=== PATIENT | female | born 1975 | race Caucasian/White ===

== ENCOUNTER 2023-07-01 09:53 | Outpatient (OUT) | payer BC, SELFPAY ==
--- NOTE | 2023-07-01 10:02 | XR_ITS ---
[address] [address] Patient Name: ARTURO BALL MRN: [id number] date: 1975 Sex: F Assigned Patient Location: [facility] Current Patient Location: [facility] Accession/Order Number: [id number] Exam Date: 07/01/2023 10:25 Report Date: 07/01/2023 11:44 At the request of: RUTHY LICONA Procedure: XR cervical spine 5V EXAM: XR cervical spine 5V HISTORY: M54.2, R20.2 COMPARISON: None. TECHNIQUE: 5 views FINDINGS: No acute fracture or subluxation. Maintained vertebral body heights and disc spaces. Unremarkable soft tissues. XR/XR cervical spine 5V IMPRESSION: Unremarkable exam. Electronically authenticated by: LAURIE MEYERS Date: 07/01/2023 11:44
== END 2023-07-01 09:54 | disposition home or self-care (01) ==
LOC: RAD 09:56
PROVIDERS: PCP Family Medicine; Visit Provider Family Medicine
DX: M54.2 Cervicalgia (principal); R20.2 Paresthesia of skin
CPT/HCPCS: 72050

== ENCOUNTER 2023-07-12 14:18 | Outpatient (OUT) | payer BC, SELFPAY ==
--- NOTE | 2023-07-12 | ECG_ITS ---
The [facility] Test Date: 2023-07-12 Pat Name: ARTURO BALL Department: Room: - Gender: Female Polysomnography Technician: : 1975 Requested By: RUTHY LICONA Order Number: [id number] Reading MD: DUSTIN MARTINEZ Measurements Intervals [place] Rate: 77 P: 72 VT: 144 QRS: 71 QRSD: 105 T: 63 QT: 389 QTc: 441 Interpretive Statements SINUS RHYTHM POSSIBLE RIGHT VENTRICULAR CONDUCTION DELAY [RSR (QR) IN V1/V2] No previous ECG available for comparison Electronically Signed On 07-14-2023 18:19:35 EDT by DUSTIN MARTINEZ
== END 2023-07-12 14:19 | disposition home or self-care (01) ==
LOC: CARD 14:19
PROVIDERS: PCP Family Medicine; Visit Provider Family Medicine
DX: R07.9 Chest pain, unspecified (principal)
CPT/HCPCS: 93005

== ENCOUNTER 2024-01-24 07:19 | Outpatient (OUT) | payer OTHER, SELFPAY ==
[2024-01-24 07:58] LABS: Bilirubin Urine NEGATIVE (NEGATIVE); Blood Urine LARGE (NEGATIVE); Clarity Urine SL CLOUDY (CLEAR); Color Urine YELLOW (YELLOW); Glucose Urine UA NEGATIVE (NEGATIVE); Ketones Urine NEGATIVE (NEGATIVE); Leukocyte Esterase Urine TRACE (NEGATIVE); Nitrite Urine NEGATIVE (NEGATIVE); Protein Urine 30 mg/dL (NEG/TRACE); Specific Gravity Urine >=1.030 (1.005-1.025)
[2024-01-24 07:59] LABS: Basophils Absolute Auto 0.1 10^3/uL (0.0-0.1); Basophils Percent Auto 0.6 % (0.2-2.0); Eosinophils Absolute Auto 0.1 10^3/uL (0.0-0.7); Eosinophils Percent Auto 1.7 % (0.9-7.0); Hematocrit 37.2 % (36.0-48.0); Hemoglobin 11.9 g/dL (12.0-16.0); Immature Granulocytes Abs Auto 0.02 10^3/uL (0.00-0.03); Immature Granulocytes Pct Auto 0.2 % (0.0-0.5); Lymphocytes Absolute Auto 1.8 10^3/uL (1.2-3.8); Lymphocytes Percent Auto 22.1 % (20.5-60.0); Mean Corpuscular Hemoglobin 30.4 pg (26.7-34.0); Mean Corpuscular Volume 95.1 fL (81.0-99.0); Monocytes Absolute Auto 0.7 10^3/uL (0.3-0.8); Monocytes Percent Auto 8.7 % (1.7-12.0); Neutrophils Absolute Auto 5.5 10^3/uL (1.4-6.5); Neutrophils Percent Auto 66.7 % (43.0-75.0); Platelet Count 201 10^3/uL (150-450); Red Blood Count 3.91 10^6/uL (4.20-5.40); Red Cell Distribution Width 12.6 % (11.0-15.0); White Blood Count 8.2 10^3/uL (4.0-11.0)
[2024-01-24 08:04] LABS: RBC Urine >100 #/HPF (0-2)
[2024-01-24 08:05] LABS: Bacteria Urine TRACE #/HPF (NONE SEEN); Cast Seen? NONE SEEN #/LPF (NONE SEEN); Crystals Seen? None Seen #/HPF (None Seen); Mucus Urine NONE SEEN (NONE SEEN); Squamous Epithelial Cell Urine RARE #/LPF (NONE/RARE)
[2024-01-24 08:24] LABS: Alanine Aminotransferase 24 U/L (14-59); Albumin Globulin Ratio 1.1; Albumin Level 3.9 g/dL (3.4-5.0); Alkaline Phosphatase 67 U/L (46-116); Aspartate Amino Transferase 14 U/L (15-37); BUN Creatinine Ratio 13.2; Bilirubin Total 0.4 mg/dL (0.2-1.0); Calcium 9.1 mg/dL (8.5-10.1); Carbon Dioxide 27.1 mmol/L (21.0-32.0); Chloride 104 mmol/L (98-107); Chol HDL Ratio 3.6; Cholesterol 196 mg/dL (<=200); Estimated GFR (African America >60 (>=60); Estimated GFR (Non-African Ame >60 (>=60); Globulin 3.4 g/dL; Glucose 92 mg/dL (74-106); HDL Cholesterol 55 mg/dL (40-60); LDL Cholesterol Calculated 133.6 mg/dL; Potassium 4.1 mmol/L (3.5-5.1); Sodium 140 mmol/L (136-145); Thyroid Stimulating Hormone 0.893 uIU/mL (0.358-3.740); Total Protein 7.3 g/dL (6.4-8.2); Triglycerides 37 mg/dL (<=150); VLDL CHOLESTEROL 7.4 mg/dL
== END 2024-01-24 07:20 | disposition home or self-care (01) ==
LOC: LAB 07:19
PROVIDERS: PCP Family Medicine; Visit Provider Family Medicine
DX: Z00.00 Encounter for general adult medical examination without abnormal findings (principal)
CPT/HCPCS: 36415; 80053; 80061; 81001; 84443; 85025

== ENCOUNTER 2024-01-26 13:48 | Emergency (ER) | payer OTHER, SELFPAY ==
[2024-01-26] VITALS (19 sets, daily range): BP systolic 123–144; BP diastolic 58–77; PULSE 60–80; TEMP 36.7; O2SAT 96–99; BMI 30.7
--- NOTE | 2024-01-26 14:24 | CT_ITS ---
The [address] [address] Patient Name: ARTURO BALL MRN: [id number] date: 1975 Sex: F Assigned Patient Location: ER Current Patient Location: ER Accession/Order Number: [id number] Exam Date: 01/26/2024 14:47 Report Date: 01/26/2024 15:25 At the request of: SHARON NICHOLSON Procedure: CT head/brain wo con EXAM: CT head/brain wo con HISTORY: Dizzy and headache COMPARISON: CT brain 06/02/2021. TECHNIQUE: Axial CT scans through the head were obtained without IV contrast administration. Dose reduction techniques were achieved by using: automated exposure control and/or adjustment of mA and /or kV according to patient size and/or use of iterative reconstruction technique. FINDINGS: There is no acute intracranial hemorrhage or abnormal extra-axial fluid collection. No mass effect or midline shift is seen. There is no evidence of large acute territorial infarction. There is no hydrocephalus. To the limit of CT, the posterior fossa appears unremarkable. There is partial empty sella. The calvaria and extra cranial soft tissues are unremarkable. The visualized orbits show no abnormality. The visualized paranasal sinuses show no air-fluid level. Mastoid air cells are clear. CT/CT head/brain wo con IMPRESSION: No acute intracranial process. Incidental note of partial empty sella. Electronically authenticated by: KASSIDY KAMARA Date: 01/26/2024 15:25
--- NOTE | 2024-01-26 14:24 | ED_ITS ---
HPI - Dizziness General Chief Complaint: Dizziness Stated Complaint: DIZZINESS/EXTREMITY WEAKNESS Time Seen by Provider: 01/26/24 14:16 Source: patient Mode of arrival: walk-in History of Present Illness HPI Narrative: 48-year-old female presents for headache and dizziness. This came on when she was at home at noon, about 2-1/2 hours ago. She has a frontal headache. She felt like her heart was racing and she has been under a lot of stress recently. No fever or cough or chest pain. She does not have palpitations now. Related Data Allergies Allergy/AdvReac Type Severity Reaction Status Date / Time No Known Drug Allergies Allergy Verified 01/26/24 14:04 Review of Systems ROS Narrative A ten point review of systems is negative except as noted above. Exam Narrative Exam Narrative: Nurses note and vital signs reviewed and patient is not hypoxic. General: The patient appears well and in no apparent distress. Patient is resting comfortably on cart. Skin: Warm, dry, no pallor noted. There is no rash noted. Head: Normocephalic, atraumatic Eye: Normal conjunctiva, no drainage Ears, Nose, Mouth, and Throat: oral mucosa is moist. Nares patent. Cardiovascular: Regular Rate and Rhythm Respiratory: Patient is in no distress, no accessory muscle use, lungs are clear to auscultation, no wheezing, rales or rhonchi Back: non-tender GI: Soft and nontender Musculoskeletal: The patient has no evidence of calf tenderness, no pitting edema, symmetrical pulses noted bilaterally Neurological: A&O x4, normal speech, upper and lower extremity strength 5 out of 5 and some Psychiatric: Cooperative Constitutional Vital Signs, click to edit/add: Last Vital Signs Temp 98.1 F 01/26/24 13:59 Pulse 65 01/26/24 16:01 Resp 18 01/26/24 16:01 BP 128/66 01/26/24 16:01 Pulse Ox 97 01/26/24 16:01 O2 Del Method Room Air 01/26/24 13:59 Course Vital Signs Vital signs: Vital Signs Temperature 98.1 F 01/26/24 13:59 Pulse Rate 80 01/26/24 13:59 Respiratory Rate 18 01/26/24 13:59 Blood Pressure 144/77 H 01/26/24 13:59 Pulse Oximetry 98 04/21/24 13:59 Oxygen Delivery Method Room Air 01/26/24 13:59 Temperature 98.1 F 01/26/24 13:59 Pulse Rate 65 01/26/24 16:01 Respiratory Rate 18 01/26/24 16:01 Blood Pressure 128/66 01/26/24 16:01 Pulse Oximetry 97 01/26/24 16:01 Oxygen Delivery Method Room Air 01/26/24 13:59 MDM - Dizziness MDM Narrative Medical decision making narrative: The workup including CT brain here is negative. The possibility that this is due to stress was discussed with the patient. She is discharged home and has an appointment with her PCP tomorrow that she will keep. Treatment diagnosis and follow-up were discussed with the patient. Differential Diagnosis Differential diagnosis: Likely benign paroxysmal positional vertigo and other (Anxiety, dehydration, anemia) Lab Data Attestation: I reviewed the patient's lab results. Labs: Lab Results 01/26/24 01/26/24 Range/Units 14:12 14:48 WBC 7.3 (4.0-11.0) 10^3/uL RBC 3.78 L (4.20-5.40) 10^6/uL Hgb 11.5 L (12.0-16.0) g/dL Hct 36.0 (36.0-48.0) % MCV 95.2 (81.0-99.0) fL MCH 30.4 (26.7-34.0) pg MCHC 31.9 (29.9-35.2) g/dL RDW 12.4 (11.0-15.0) % Plt Count 217 (150-450) 10^3/uL MPV 10.8 (9.5-13.5) fL Neut % (Auto) 59.0 (43.0-75.0) % Lymph % (Auto) 28.7 (20.5-60.0) % [place] % (Auto) 8.8 (1.7-12.0) % Eos % (Auto) 2.7 (0.9-7.0) % Baso % (Auto) 0.5 (0.2-2.0) % Neut # (Auto) 4.3 (1.4-6.5) 10^3/uL Lymph # (Auto) 2.1 (1.2-3.8) 10^3/uL [place] # (Auto) 0.6 (0.3-0.8) 10^3/uL Eos # (Auto) 0.2 (0.0-0.7) 10^3/uL Baso # (Auto) 0.0 (0.0-0.1) 10^3/uL Abs Immat Gran (auto) 0.02 (0.00-0.03) 10^3/uL Imm/Tot Granulo (auto) 0.3 (0.0-0.5) % Sodium 139 (136-145) mmol/L Potassium 3.9 (3.5-5.1) mmol/L Chloride 105 (98-107) mmol/L Carbon Dioxide 26.2 (21.0-32.0) mmol/L Anion Gap 11.7 BUN 13.0 (7.0-18.0) mg/dL Creatinine 0.89 (0.55-1.02) mg/dL Est GFR ( Amer) >60 (>=60) Est GFR (Non-Af Amer) >60 (>=60) BUN/Creatinine Ratio 14.6 Glucose 97 (74-106) mg/dL Calcium 9.3 (8.5-10.1) mg/dL Urine Color Lt. yellow (YELLOW) Urine Clarity Clear (CLEAR) Urine pH 7.0 (5.0-9.0) Ur Specific [place] 1.010 (1.005-1.025) Urine Protein Negative (NEG/TRACE) mg/dL Urine Glucose (UA) Negative (NEGATIVE) mg/dL Urine Ketones Negative (NEGATIVE) mg/dL Urine Occult Blood Moderate A (NEGATIVE) Urine Nitrite Negative (NEGATIVE) Urine Bilirubin Negative (NEGATIVE) Urine Urobilinogen 0.2 (0.2-1.0) EU/dL Ur Leukocyte Esterase Negative (NEGATIVE) Urine RBC 5-10 A (0-2) #/HPF Urine WBC None seen (NONE SEEN) #/HPF Ur Squamous Epith Cells Rare (NONE/RARE) #/LPF Urine Crystals None seen (None Seen) #/HPF Urine Bacteria None seen (NONE SEEN) #/HPF Urine Casts None seen (NONE SEEN) #/LPF Urine Mucus None seen (NONE SEEN) Imaging Data CT scan - head: Radiologist's impression: ITS Impressions Head CT 01/26/24 14:24 IMPRESSION: No acute intracranial process. Incidental note of partial empty sella. Electronically authenticated by: KASSIDY KAMARA Date: 01/26/2024 15:25 ECG Data Attestation: I personally reviewed and interpreted this ECG as follows: (EKG on my interpretation shows sinus rhythm with a rate of 72 and no acute change.) Discharge Plan Discharge Stand Alone Forms: Portal Instructions Chief Complaint: Dizziness Clinical Impression: Dizziness Patient Disposition: Home, Self-Care Time of Disposition Decision: 16:07 Condition: Good Mode of Transportation: Private Vehicle Print Language: Bengali Instructions: Dizziness (ED) Additional Instructions: See your PCP at your appointment tomorrow Referrals: RUTHY LICONA [Primary Care Provider] - 1 week
--- NOTE | 2024-01-26 14:24 | ECG_ITS ---
The [facility] Test Date: 2024-01-26 Pat Name: ARTURO BALL Department: Room: - Gender: Female Origination Specialist: : 1975 Requested By: RUTHY LICONA Order Number: [id number] Reading MD: DUSTIN MARTINEZ Measurements Intervals [place] Rate: 72 P: 60 IN: 148 QRS: 54 QRSD: 100 T: 50 QT: 388 QTc: 412 Interpretive Statements 1100 Sinus rhythm 2420 RSR (QR) in lead V1/V2, consistent with right ventricular conduction delay 9130 borderline ECG Compared to ECG 07/12/2023 14:27:56 No significant changes Electronically Signed On 01-27-2024 7:44:27 EDT by DUSTIN MARTINEZ
[2024-01-26 14:29] LABS: Basophils Percent Auto 0.5 % (0.2-2.0); Eosinophils Absolute Auto 0.2 10^3/uL (0.0-0.7); Eosinophils Percent Auto 2.7 % (0.9-7.0); Hemoglobin 11.5 g/dL (12.0-16.0); Immature Granulocytes Abs Auto 0.02 10^3/uL (0.00-0.03); Immature Granulocytes Pct Auto 0.3 % (0.0-0.5); Lymphocytes Absolute Auto 2.1 10^3/uL (1.2-3.8); Lymphocytes Percent Auto 28.7 % (20.5-60.0); Mean Corpuscular HGB Conc 31.9 g/dL (29.9-35.2); Mean Corpuscular Hemoglobin 30.4 pg (26.7-34.0); Mean Corpuscular Volume 95.2 fL (81.0-99.0); Mean Platelet Volume 10.8 fL (9.5-13.5); Monocytes Absolute Auto 0.6 10^3/uL (0.3-0.8); Monocytes Percent Auto 8.8 % (1.7-12.0); Neutrophils Absolute Auto 4.3 10^3/uL (1.4-6.5); Platelet Count 217 10^3/uL (150-450); Red Blood Count 3.78 10^6/uL (4.20-5.40); Red Cell Distribution Width 12.4 % (11.0-15.0); White Blood Count 7.3 10^3/uL (4.0-11.0)
[2024-01-26 14:41] LABS: Anion Gap 11.7; BUN Creatinine Ratio 14.6; Calcium 9.3 mg/dL (8.5-10.1); Carbon Dioxide 26.2 mmol/L (21.0-32.0); Chloride 105 mmol/L (98-107); Estimated GFR (African America >60 (>=60); Estimated GFR (Non-African Ame >60 (>=60); Glucose 97 mg/dL (74-106); Potassium 3.9 mmol/L (3.5-5.1); Sodium 139 mmol/L (136-145)
[2024-01-26 14:56] LABS: Bilirubin Urine NEGATIVE (NEGATIVE); Blood Urine MODERATE (NEGATIVE); Clarity Urine CLEAR (CLEAR); Color Urine LT. YELLOW (YELLOW); Glucose Urine UA NEGATIVE (NEGATIVE); Ketones Urine NEGATIVE (NEGATIVE); Leukocyte Esterase Urine NEGATIVE (NEGATIVE); Nitrite Urine NEGATIVE (NEGATIVE); Protein Urine NEGATIVE (NEG/TRACE); Urobilinogen Urine 0.2 EU/dL (0.2-1.0)
[2024-01-26 15:06] LABS: WBC Urine NONE SEEN #/HPF (NONE SEEN)
[2024-01-26 15:07] LABS: Bacteria Urine NONE SEEN #/HPF (NONE SEEN); Cast Seen? NONE SEEN #/LPF (NONE SEEN); Crystals Seen? None Seen #/HPF (None Seen); Mucus Urine NONE SEEN (NONE SEEN); Squamous Epithelial Cell Urine RARE #/LPF (NONE/RARE)
== END 2024-01-26 16:14 | disposition home or self-care (01) ==
PROVIDERS: Emergency Provider Emergency Medicine; PCP Family Medicine
DX: R42 Dizziness and giddiness (principal)
CPT/HCPCS: 36415; 70450; 80048; 81001; 85025; 93005; 99285

== ENCOUNTER 2024-09-28 12:15 | Outpatient (OUT) | payer OTHER, SELFPAY ==
--- NOTE | 2024-09-28 12:20 | MR_ITS ---
The [address] [address] Patient Name: ARTURO BALL MRN: [id number] date: 1975 Sex: F Assigned Patient Location: MRI Current Patient Location: MRI Accession/Order Number: [id number] Exam Date: 09/28/2024 12:45 Report Date: 09/28/2024 16:51 At the request of: ONELIA CHAO Procedure: MR cervical spine wo con MR cervical spine wo con, 09/28/2024 12:45 PM EST INDICATION: bilateral occipital neuroglia COMPARISON: Prior x-ray of cervical spine dated 07/01/2020 TECHNIQUE: Multiplanar, multisequential MRI images of cervical spine were obtained without contrast. FINDINGS: There is loss of normal physiologic cervical lordosis. The vertebral heights are relatively preserved. The cervicomedullary junction is unremarkable. No definite signal abnormality within the spinal cord is noted. There are mild disc osteophyte complex associated with uncovertebral joint arthrosis from C3 to T1 contributing to neuroforaminal and canal stenosis. At the level of C2-C3, there is no neuroforaminal narrowing or canal stenosis. At the level of C3-C4, there is superimposed central protrusion with mild bilateral neuroforaminal narrowing and mild central canal stenosis. At the level of C4-C5, there is mild bilateral neuroforaminal narrowing and mild canal stenosis. At the level of C5-C6, there is severe right and mild left neuroforaminal narrowing and moderate canal stenosis. At the level of C6-C7, there is severe bilateral neuroforaminal narrowing and severe canal stenosis. Level of C7-T1, there is mild to moderate bilateral neuroforaminal narrowing and mild canal stenosis. No definite muscular or ligamentous injury is noted. Hemangioma in the body of T2 is noted. MR/MR cervical spine wo con IMPRESSION: Moderate degenerative changes of the cervical spine in particular at C5-C6 and C6-C7. Electronically authenticated by: FANNY WHEAT Date: 09/28/2024 16:51
--- NOTE | 2024-09-28 12:24 | MR_ITS ---
The [address] [address] Patient Name: ARTURO BALL MRN: [id number] date: 1975 Sex: F Assigned Patient Location: MRI Current Patient Location: MRI Accession/Order Number: [id number] Exam Date: 09/28/2024 12:45 Report Date: 09/28/2024 23:56 At the request of: ONELIA CHAO Procedure: MR head/brain wo/w con EXAM: MR head/brain wo/w con HISTORY: bilateral occipital neuroglia COMPARISON: None. TECHNIQUE: Multisequence MRI brain was performed with and without intravenous contrast. FINDINGS: There is no restricted diffusion to suggest acute infarct. There is no midline shift, mass effect, or abnormal extraaxial fluid collections. There is a 1.1 x 0.5 cm partially enhancing well-defined juxtacortical cystic lesion in the inferior lateral right temporal lobe (8001/6, 1200/11, 18686/17). There is mild surrounding vasogenic edema. The cortical sulci and ventricular system are within normal limits. The major intracranial flow voids are visualized. The cerebellar tonsils are normal in position. The orbits demonstrate no suspicious enhancement or any focal lesions. The paranasal sinuses show no air-fluid level. The mastoid air cells are clear. The calvarium and extracranial soft tissues are unremarkable. MR/MR head/brain wo/w con IMPRESSION: No acute intracranial abnormality. A 1.1 x 0.5 cm well-defined juxtacortical partially enhancing cystic lesion in the right inferior temporal lobe with mild surrounding vasogenic edema. Differential diagnostic considerations include primary tumors such as ganglioglioma, PXA or astrocytoma; metastases; atypical infection or demyelination. Recommend short-term follow-up with thin slice contrast-enhanced brain MRI and neurosurgical consultation. Electronically authenticated by: KASSIDY KAMARA Date: 09/28/2024 23:56
== END 2024-09-28 12:16 | disposition home or self-care (01) ==
LOC: MRI 12:15
PROVIDERS: PCP Family Medicine; Visit Provider Nurse Practitioner Family
DX: M54.81 Occipital neuralgia (principal); M54.2 Cervicalgia; R94.02 Abnormal brain scan
CPT/HCPCS: 70553; 72141; A9575